=== PATIENT | female | born 1975 | race Caucasian/White ===

== ENCOUNTER 2016-10-17 07:24 | Outpatient (CLI) | payer MEDICAID ==
[~2016-10-17] VITALS: Ht 147.3 cm; Wt 61.7 kg
[~2016-10-17 07:24] MED LIST: PREN1TAB49 PO
[2016-10-17 07:47] VITALS: BP 110/56; PULSE 91; Ht 147.3 cm; Wt 61.7 kg
[2016-10-17] MEDS ORDERED: LACTATED RINGER'S 1,000 ML IV SCH (08:30)
--- NOTE | 2016-10-17 08:58 | RADRPT ---
PROCEDURE: US Abdomen. CLINICAL INDICATION: abdominal pain TECHNIQUE: Multiple real-time images were acquired of the patient's right upper quadrant abdomen a nd retroperitoneum utilizing a high resolution transducer. COMPARISON: 04/06/12 FINDINGS: The liver demonstrates normal echogenicity. The liver is normal in size and no focal solid lesions are seen. The liver measures 14.8 cm in length. The portal vein is patent with normal direction of f low. No intrahepatic biliary dilatation is seen. Multiple gallstones are identified within the gallbladder. There is no pericholecystic fluid or gal lbladder wall thickening. The common bile duct was not visualized. The pancreas was not seen due to overlying bowel gas. No free fluid is identified. The right kidney is normal in size, and demonstrate normal echogenicity and cortical thickness. The right kidney measures 9.0 cm in long dimension. There is mild right-sided hydronephrosis. There ar e no kidney stones. RPTAT: AA IMPRESSION: Cholelithiasis. Mild right-sided hydronephrosis. Pancreas and CBD not visualized. .Jose Armando Garcia MD, Date Time Electronically viewed and signed by .Jose Armando Garcia MD, on 10/17/2016 08:58 .S/
[2016-10-17 09:07] LABS: ADD UMIC NO; UR ASCORBIC ACID NEGATIVE (NEGATIVE); UR BILIRUBIN (Dip) NEGATIVE (NEGATIVE); UR BLOOD (Dip) NEGATIVE (NEGATIVE); UR CLARITY CLEAR (CLEAR); UR COLOR STRAW (YELLOW); UR GLUCOSE (Dip) NEGATIVE (NEGATIVE); UR KETONES (Dip) NEGATIVE (NEGATIVE); UR LEUKOCYTE ESTERASE (Dip) NEGATIVE Leu/ul (NEGATIVE); UR NITRITE (Dip) NEGATIVE (NEGATIVE); UR SPECIFIC GRAVITY (Dip) 1.011 (1.003-1.030); UR TOTAL PROTEIN (Dip) NEGATIVE (NEGATIVE); UR UROBILINOGEN (Dip) NEGATIVE (NEGATIVE)
[2016-10-17 09:43] LABS: ALBUMIN 3.4 g/dl (3.3-4.9); BILIRUBIN,INDIRECT 0.2 mg/dl (0-1.1); BILIRUBIN,TOTAL 0.2 mg/dl (0.2-1.3); CALCIUM 8.7 mg/dl (8.4-10.2); CREATININE 0.44 mg/dl (0.44-1.00); POTASSIUM 3.5 mmol/L (3.5-5.1); TOTAL PROTEIN 6.8 g/dl (6.1-8.1)
--- NOTE | 2016-10-17 10:38 | PN ---
Triage Information Date/Time 10/17/16 Weeks of Gestation 25 weeks and 2 day : 3 Para: 2 Diabetes: none Hypertention: none Objective Vital Signs Date Time Temp Pulse Resp B/P Pulse Ox O2 Delivery O2 Flow Rate FiO2 10/17/16 07:47 98.2 91 110/56 Heart Rate: 130's Contractions: None Results/Medications Result Diagram: 10/17/16 0835 Results 24 hrs Laboratory Tests Test 10/17/16 08:05 10/17/16 08:35 Urine Color STRAW Urine Clarity CLEAR Urine pH 7.0 Urine Specific [place] 1.011 Urine Ketones NEGATIVE Urine Nitrite NEGATIVE Urine Bilirubin NEGATIVE Urine Urobilinogen NEGATIVE Urine Leukocyte Esterase NEGATIVE Urine Hemoglobin NEGATIVE Urine Glucose NEGATIVE Urine Total Protein NEGATIVE Sodium Level 138 Potassium Level 3.5 Chloride Level 100 Carbon Dioxide Level 24 Anion Gap 18 H Blood Urea Nitrogen 9 Creatinine 0.44 Glucose Level 95 Calcium Level 8.7 Total Bilirubin 0.2 Direct Bilirubin 0.00 Indirect Bilirubin 0.2 Aspartate Amino Transf (AST/SGOT) 21 Alanine Aminotransferase (ALT/SGPT) 26 Alkaline Phosphatase 66 Total Protein 6.8 Albumin 3.4 Globulin 3.40 H Albumin/Globulin Ratio 1.00 Medications Current Medications Lactated Ringer's (Lr) 1,000 ml @ 125 mls/hr Q8H IV Last administered on t 08:38; Admin Dose 125 MLS/HR; Start 10/17/16 at 08:30 Assessment/Plan 25 weeks to 7 days complaining of right upper quadrant pain ultrasound diagnosis consistent with cholelithiasis patient discharged home on a low-fat diet and pain medication advised to follow with the clinic with the rest of her care LOUIS MARKS MD Oct 17, 2016 10:38
== END 2016-10-17 10:42 | disposition home or self-care (01) ==
LOC: OBT 07:24 → L-D 07:25 → OBT 10:42
PROVIDERS: ATTEND Obstetrics & Gynecology
DX: O99.612 Diseases of the digestive system complicating pregnancy, second trimester (principal); Z3A.25 25 weeks gestation of pregnancy
CPT/HCPCS: 36415; 76705; 80053; 81003; J7120; Z7500; G0463

== ENCOUNTER 2017-01-03 05:20 | Inpatient (IN) | payer MEDICAID ==
[~2017-01-03] VITALS: Ht 148.6 cm; Wt 66.2 kg
[2017-01-03 05:33] VITALS: Ht 148.6 cm; Wt 66.2 kg
[2017-01-03 05:34] VITALS: BP 123/88; PULSE 81; RESP 18
[2017-01-03] MEDS ORDERED: OXYTOCIN 30 UNITS/LR 500 ML IV PRN ×2 (06:00→13:00)
[2017-01-03] MEDS ORDERED: CARBOPROST 250 MCG INJ IM PRN ×2 (06:00→13:00)
[2017-01-03] MEDS ORDERED: METHYLERGONOVINE 0.2 MG INJ IM PRN ×2 (06:00→13:00)
[2017-01-03] MEDS ORDERED: AMPICILLIN 2 GM/NS (PMX) 100 ML IV SCH (06:00)
[2017-01-03] MEDS ORDERED: MISOPROSTOL 200 MCG TAB PR PRN ×2 (06:00→13:00)
[2017-01-03] MEDS ORDERED: OXYTOCIN 30 UNITS/LR 500 ML IV SCH (06:00)
[2017-01-03] MEDS ORDERED: CEFAZOLIN 2 GM/50 ML (PMX) 50 ML IV SCH (06:00)
[2017-01-03] MEDS: LACTATED RINGER'S 1,000 ML IV SCH ×2 (06:18→09:01)
[2017-01-03 06:55] LABS: ABNORMAL IP MESSAGE 1; BASOPHILS % 0.2 % (0.0-2.0); EOSINOPHILS # 0.1 10^3/ul (0.0-0.5); EOSINOPHILS % 0.9 % (0.0-7.0); HEMATOCRIT 40.6 % (37.0-47.0); HEMOGLOBIN 13.6 g/dl (12.0-16.0); LYMPHOCYTES # 1.4 10^3/ul (0.8-2.9); LYMPHOCYTES % 17.4 % (15.0-51.0); MEAN CORPUSCULAR HEMOGLOBIN 32.3 pg (29.0-33.0); MEAN CORPUSCULAR HGB CONC 33.5 g/dl (32.0-37.0); MEAN CORPUSCULAR VOLUME 96.4 fl (82.0-101.0); MEAN PLATELET VOLUME 14.2 fl (7.4-10.4); MONOCYTE # 0.4 10^3/ul (0.3-0.9); MONOCYTES % 5.3 % (0.0-11.0); NEUTROPHIL # 6.1 10^3/ul (1.6-7.5); NEUTROPHILS % 75.7 % (39.0-77.0); PLATELET COUNT 106 10^3/UL (140-415); RED BLOOD COUNT 4.21 10^6/ul (4.20-5.40); RED CELL DISTRIBUTION WIDTH 13.3 % (11.5-14.5); WHITE BLOOD COUNT 8.1 10^3/ul (4.8-10.8)
[2017-01-03 06:56] LABS: POSITIVE DIFF @See below
[2017-01-03 07:24] LABS: INR 0.89; PT RATIO 0.9
--- NOTE | 2017-01-03 07:33 | TRIAGE ---
OB Triage Datetime Report Generated by CPN: 01/03/2017 07:33 Datetime: 01/03/2017 07:07 Assessment Type: Admission Assessment Vaginal Bleeding: None Maternal Assessment Level of Consciousness: Fully Conscious DTR's/Clonus: DTRs 2+; No Clonus Headache: Denies Blurred Vision: No Respiratory Effort: Unlabored; Regular Rhythm; Equal Expansion Breath Sounds, Left: Clear and Equal Breath Sounds, Right: Clear and Equal Nausea/Vomiting: Denies RUQ Epigastric Pain: Denies Lower Extremities Edema: None Degree: None Upper Extremities Edema: None Degree: None Facial Edema: None Fall Risk Assessment History of Falling: (0) No Secondary Diagnosis: (0) No Ambulatory Aid: (0) Bedrest/Nurse Assist IV Therapy: (0) No Gait: (0) Normal/Bedrest/Immobile Mental Status: (0) Oriented to Own Ability Fall Score: 0 Fall Risk Score Definition: No Risk: No action required Membrane Status: Ruptured Membranes Ruptured Date/Time: 01/03/2017 04:00 Membranes Rupture Method: Spontaneous Amniotic Fluid Color: Clear Amniotic Fluid Amount: Moderate Amniotic Fluid Odor: None Nitrazine: Positive Datetime: 01/03/2017 07:00 Labor Evaluation Frequency: 3-5.5 Monitor Mode: External Duration (sec)2399: 50-110 Quality: Mild Pattern: Normal: <= 5 Contractions in 10 Minutes Resting Tone [place]: Relaxed Heart Rate FHR Baseline Rate: 140 Monitor Mode: External US Variability: Moderate 6-25 bpm Accelerations: 15X15 Decelerations: Variable Category: Category II Datetime: 01/03/2017 06:10 Stage of : Labor Datetime: 01/03/2017 06:00 Labor Evaluation Frequency: 4-6.5 Monitor Mode: External Duration (sec)2399: 50-80 Quality: Mild Pattern: Normal: <= 5 Contractions in 10 Minutes Resting Tone [place]: Relaxed Heart Rate FHR Baseline Rate: 135 Monitor Mode: External US Variability: Moderate 6-25 bpm Accelerations: 15X15 Decelerations: None Category: Category I Datetime: 01/03/2017 05:41 Stage of : OB Triage Datetime: 01/03/2017 05:35 Vaginal Exam Dilatation (cms): 0.0 Effacement (%): 60 Station: -3 Exam By: EUN Barker Membrane Status: Ruptured Membranes Rupture Method: Spontaneous Amniotic Fluid Color: Clear Amniotic Fluid Amount: Moderate Amniotic Fluid Odor: None Vaginal Bleeding: None Nitrazine: Positive Cervix, Consistency: Soft Cervix, Position: Posterior Datetime: 01/03/2017 05:29 Time of Arrival: 01/03/2017 05:12 EGA: 36.2 Arrived By: Wheelchair Arrived From: Home Chief Complaint: SROM @0400 Movement: Present Contractions: Irregular Time Contractions Began: 01/03/2017 04:00 Contractions: Unsure Rupture of Membranes: Ruptured Vaginal Bleeding: None Vaginal Discharge: Present Abdominal Trauma: Not Applicable Patient Complaints: Contractions; Cramping; Back Pain Time Provider Notified: 01/03/2017 05:41 Provider Notified: Initial Plan: EFM, Nitrazine Datetime: 01/03/2017 05:28 Stage of : OB Triage Assessment Type: Triage Maternal Assessment Level of Consciousness: Fully Conscious DTR's/Clonus: DTRs 2+; No Clonus Headache: Denies Blurred Vision: No Respiratory Effort: Unlabored; Regular Rhythm; Equal Expansion Breath Sounds, Left: Clear and Equal Breath Sounds, Right: Clear and Equal Nausea/Vomiting: Denies RUQ Epigastric Pain: Denies Lower Extremities Edema: None Degree: None Upper Extremities Edema: None Degree: None Facial Edema: None Temperature Route: Oral Fall Risk Assessment History of Falling: (0) No Secondary Diagnosis: (0) No Ambulatory Aid: (0) Bedrest/Nurse Assist IV Therapy: (0) No Gait: (0) Normal/Bedrest/Immobile Mental Status: (0) Oriented to Own Ability Fall Score: 0 Fall Risk Score Definition: No Risk: No action required Pain Assessment Pain Scale: 2 Pain Presence: Intermittent Pain Type: Cramping Pain Location: Abdomen; Back Pain Relief Measures: Comfort Measures Datetime: 10/17/2016 10:27 Stage of : OB Triage Datetime: 10/17/2016 10:16 Labor Evaluation Frequency: 0 Monitor Mode: External Resting Tone [place]: Relaxed Heart Rate FHR Baseline Rate: 135 Monitor Mode: External US Variability: Moderate 6-25 bpm Accelerations: 15X15 Decelerations: None Category: Category I Pain Assessment Pain Scale: 3 Pain Presence: Constant Pain Type: Ache Pain Location: Abdomen Pain Goal: 3 Pain Relief Measures: Comfort Measures Datetime: 10/17/2016 09:09 Labor Evaluation Frequency: X1 Monitor Mode: External Duration (sec)2399: 30 Resting Tone [place]: Relaxed Heart Rate FHR Baseline Rate: 145 Monitor Mode: External US Variability: Moderate 6-25 bpm Category: Category I Pain Assessment Pain Scale: 5 Pain Presence: Constant Pain Type: Ache Pain Location: Abdomen Pain Goal: 3 Pain Relief Measures: Comfort Measures Datetime: 10/17/2016 08:18 Stage of : OB Triage Datetime: 10/17/2016 07:44 Stage of : OB Triage Assessment Type: Triage Maternal Assessment Level of Consciousness: Fully Conscious DTR's/Clonus: DTRs 2+; No Clonus Headache: Denies Blurred Vision: No Respiratory Effort: Unlabored; Regular Rhythm; Equal Expansion Breath Sounds, Left: Clear and Equal Breath Sounds, Right: Clear and Equal Nausea/Vomiting: Denies RUQ Epigastric Pain: Denies Facial Edema: None Temperature Route: Axillary Fall Risk Assessment History of Falling: (0) No Secondary Diagnosis: (0) No Ambulatory Aid: (0) Bedrest/Nurse Assist IV Therapy: (0) No Gait: (0) Normal/Bedrest/Immobile Mental Status: (0) Oriented to Own Ability Fall Score: 0 Fall Risk Score Definition: No Risk: No action required Labor Evaluation Frequency: 0 Monitor Mode: External Resting Tone [place]: Relaxed Heart Rate FHR Baseline Rate: 150 Monitor Mode: External US Variability: Moderate 6-25 bpm Accelerations: 10X10 Decelerations: None Category: Category I Pain Assessment Pain Scale: 6 Pain Presence: Constant Pain Type: Ache Pain Location: Abdomen Pain Goal: 3 Pain Relief Measures: Comfort Measures Datetime: 10/17/2016 07:43 EGA: 25.1 Membranes Ruptured Date/Time: 01/03/2017 04:00 Datetime: 10/17/2016 07:42 Time of Arrival: 10/17/2016 07:25 Arrived By: Ambulatory Arrived From: Home Chief Complaint: C/O CONSTANT UPPER ABDOMINAL PAIN, DENIES BLEEDING OR LEAKING OF FLUID Movement: Present Contractions: Denies/Absent Rupture of Membranes: Denies Vaginal Bleeding: None Vaginal Discharge: Denies Recent Sexual Intercouse: Denies Abdominal Trauma: Not Applicable Patient Complaints: Other Time Provider Notified: 10/17/2016 08:18 Provider Notified: SELINA Initial Plan: MONITOR, U/A, CMP, U/S OF GALLBLADDER, IV HYDRATION
--- NOTE | 2017-01-03 08:23 | PN ---
Triage Information Date/Time Jan 03, 2017 at 05:41 Reason for visit: SROM Weeks of Gestation 36 weeks and 2 days /Para Diabetes: none Hypertention: none Objective Vital Signs Date Time Temp Pulse Resp B/P Pulse Ox O2 Delivery O2 Flow Rate FiO2 01/03/17 05:34 97.9 81 18 123/88 Room Air Heart Rate: 130's Heart Rate Comments Category I Contractions: 6-10 Minutes Apart Results/Medications Result Diagram: 01/03/17604 Results 24 hrs Laboratory Tests Test 01/03/17 06:05 White Blood Count 8.1 Red Blood Count 4.21 Hemoglobin 13.6 Hematocrit 40.6 Mean Corpuscular Volume 96.4 Mean Corpuscular Hemoglobin 32.3 Mean Corpuscular Hemoglobin Concent 33.5 Red Cell Distribution Width 13.3 Platelet Count 106 L Mean Platelet Volume 14.2 H Neutrophils % 75.7 Lymphocytes % 17.4 Monocytes % 5.3 Eosinophils % 0.9 Basophils % 0.2 Nucleated Red Blood Cells % 0.0 Neutrophils # 6.1 Lymphocytes # 1.4 Monocytes # 0.4 Eosinophils # 0.1 Basophils # 0.0 Nucleated Red Blood Cells # 0.0 Prothrombin Time 12.0 L Prothrombin Time Ratio 0.9 INR International Normalized Ratio 0.89 Activated Partial Thromboplast Time 29.0 Medications Current Medications Lactated Ringer's 1,000 ml @ 125 mls/hr Q8H IV Last administered on 06:18; Admin Dose 125 MLS/HR; Start 01/03/17 at 05:47 Ampicillin 100 ml @ 100 mls/hr ONCE IV Last administered on 01/03/17 07:02; Admin Dose 100 MLS/HR; Start 01/03/17 at 06:00 Cefazolin Sodium/ Dextrose 50 ml @ 100 mls/hr ONCE IV ; Start 01/03/17 at 06: 00 Oxytocin/Lactated Ringer's 500 ml @ 125 mls/hr ONCE IV ; Start 01/03/17 at 06: 00 Oxytocin/Lactated Ringer's 500 ml @ 0 mls/hr ONCE PRN IV For Hemorrhage Management; Start 01/03/17 at 06:00 Methylergonovine Maleate (Methergine) 0.2 mg ONCE PRN IM VAGINAL BLEEDING; Start 01/03/17 at 06:00 Carboprost Tromethamine (Hemabate) 250 mcg ONCE PRN IM VAGINAL BLEEDING; Start 01/03/17 at 06:00 Misoprostol (Cytotec) 1,000 mcg ONCE PRN [place] VAGINAL BLEEDING; Start 01/03/17 at 06:00 Disposition: Admit Assessment/Plan Previous c/s x2 SROM Labor contractions Plan: IV ampicillin Repeat c/s MIGEL LOBO MD Jan 03, 2017 08:23
[2017-01-03] MEDS ORDERED: morphine SULFATE/PF (10 MG/10 ML) INJ ONE (09:15)
[2017-01-03] MEDS ORDERED: FENTAnyl 50 MCG/ML VIAL ONE (09:15)
[2017-01-03] MEDS ORDERED: ONDANSETRON 4 MG INJ ONE (09:27)
[2017-01-03] MEDS ORDERED: PHENYLephrine (100 MCG/ML) 5ML SYG ONE (09:27)
[2017-01-03] MEDS ORDERED: DEXAMETHASONE 4 MG/ML 1 ML INJ ONE (09:27)
--- NOTE | 2017-01-03 09:32 | HP ---
Date/Time of Note Date/Time of Note DATE: 01/03/17 TIME: 09:15 OB - History Hx of Present Free Text/Dictation 41 years old female admitted to [facility] at 36 weeks and 2 days with EDC January 29, 2017 history of previous , premature rupture of membrane in labor Chief Complaint: 36 weeks 2 days pregnancy2 previous section which was rupture of m Estimated Due Date: Jan 29, 2017 : 3 Para: 2 Care: Limited Care Ultrasounds: Normal mid trimester US Obstetrical Complications: Growth Restriction Medical Complications: None Past Family/Social History * Past Medical, Surgical, Family and Obstetric Histories reviewed from chart. Rubella: immune RPR/VDRL: Negative GBS Status: Negative HBsAG: Unknown OB Admission Exam Vital Signs Vital Signs Vital Signs Date Time Temp Pulse Resp B/P Pulse Ox O2 Delivery O2 Flow Rate FiO2 01/03/17 05:34 97.9 81 18 123/88 Room Air Physical Exam HEENT: WNL Heart: Rhythm Normal Lungs: Clear, Equal Abdomen: WNL Extremities: Normal Reflexes: Normal Cervical Dilatation: 2cm Effacement: 50% Station: -2 Membranes: Ruptured Amniotic Fluid: Clear Heart Rate: 130's Accelerations: Accelerations Present Decelerations: No Decelerations Varibility: Moderate Contractions on Admission: >10 Minutes Apart Intensity: Mild Last 72 hours Lab Results CBC & BMP 01/03/17 06:05 OB Assessment/Plan Reason for admission: other (Previous premature rupture of membeane in labor ) Other plan: 41 years old female history of 2 previous admitted at 36 weeks and 2 days with premature rupture of membrane as of the morning in labor, being Prepared for repeat for the third time, complication of the surgery including but not limited to bowel and bladder injury, infection wound hematoma , hemorrhage, has been explained to her and she is willing to proceed with the repeat . LOUIS MARKS MD Jan 03, 2017 09:26
[2017-01-03] MEDS ORDERED: HYDROmorphONE 1 MG/ML SYG IV PRN ×2 (10:00)
[2017-01-03] MEDS ORDERED: TRIMETHOBENZAMIDE 100 MG/ML VIAL IM PRN (10:00)
[2017-01-03] MEDS ORDERED: KETOROLAC 30 MG INJ IV PRN (10:00)
[2017-01-03] MEDS ORDERED: ONDANSETRON 4 MG INJ IV PRN (10:00)
[2017-01-03] MEDS ORDERED: DIPHENHYDRAMINE 50 MG INJ IV PRN (10:00)
[2017-01-03] MEDS ORDERED: ZOLPIDEM 5 MG TAB PO PRN (10:00)
[2017-01-03] MEDS ORDERED: NALBUPHINE HCL (10 MG/1 ML) INJ IV PRN (10:00)
[2017-01-03] MEDS ORDERED: NALOXONE (0.4 MG/ML) INJ IV PRN (10:00)
--- NOTE | 2017-01-03 10:33 | OPR ---
Operative Report Planned Procedure Free Text/Dictation 41 years old female history of 2 previous admitted at 38 weeks 2 days with premature rupture of membrane in labor Procedure date Jan 03, 2017 Procedure(s) Repeat Performed by see signature line Assisting provider: MEREDITH YUN MD Anesthesiologist: LEX MCMULLEN DO Pre-procedure diagnosis Previous premature rupture of membrane in labor Anesthesia Type: spinal Procedure Description Under satisfactory spinal [] anesthesia, the patient was prepped and draped and placed in a supine position, tilted to the left. Pfannenstiel incision was made , carried through the subcutaneous tissue. Bleeders brought under control with electrocautery. Fascia incised to the length of the incision. Rectus muscles from the fascia, divided midline. Peritoneum exposed, entered through a transverse incision. Exploration of abdomen revealed gravid uterus. Normal- appearing tubes and ovaries bladder flap was developed. Transverse incision was made in the lower segment of the uterus. Amniotic sac ruptured. [Clear] amniotic fluid noted light baby girl was delivered from unengaged vertex. [] Nasal oropharyngeal suction was performed. The baby handed to the team for immediate attention patient received 20 units of. Pitocin placenta delivered manually intact. Uterine cavity was cleaned with wet sponge and drainage established. Uterus closed in 2 layers using [Monocryl #1] in continuous fashion. Peritoneal cavity irrigated with warm saline. Sponge, needle and instrument count reported to be correct. Abdominal peritoneum closed with 0 chromic catgut [] continuously. Rectus muscle approximated with [0 chromic catgut]. Fascia closed with #1 PDS],subcutaneous tissue approximated with 0 chromic catgut skin closed with N sorb estimated blood loss [600 cc. Urine bag contained 200 cc of clear urine patient tolerated procedure well transferred to recovery room in good condition. Post-Procedure Findings: Live Baby girl coronary 9 9 Estimated blood loss: other (600 cc) Specimen(s): no Grafts/Implants: no Complication(s): no Pt Condition post procedure: critical Physician Certification I, the undersigned physician, hereby certify that I have discussed the procedure described in this consent form with this patient (or the patient's legal unit support representative), including: * The risk and benefits of the procedure; * Any adverse reactions that may reasonably be expected to occur; * Any alternative efficacious methods of treatment which may be medically viable ; * The potential problems that may occur during recuperation; * Potential for blood transfusion and associated risks/benefits; and * Any research or economic interest I may have regarding this treatment. I further certify that the patient/legally responsible person was encouraged to ask question and that all questions were answered. LOUIS MARKS MD Jan 03, 2017 10:33
[2017-01-03] MEDS ORDERED: HYDROCODONE/APAP (5/325) TAB PO PRN ×2 (13:00)
[2017-01-03] MEDS ORDERED: CEFAZOLIN 1 GM/50 ML (PMX) 50 ML IVPB SCH (13:00)
[2017-01-03] MEDS ORDERED: LANOLIN 7 GM TUBE TOP PRN (13:00)
[2017-01-03] MEDS ORDERED: OXYCODONE/ACETAMINOPHEN (5/325) TAB PO PRN ×2 (13:00)
[2017-01-03 13:10] VITALS: BP 120/59; PULSE 56; RESP 18
[2017-01-03 16:00] VITALS: BP 106/63; PULSE 61; RESP 18
[2017-01-03] MEDS: OXYTOCIN 30 UNITS/LR 500 ML IV SCH ×3 (16:03→22:07)
[2017-01-03 20:00] VITALS: BP 101/59; PULSE 71; RESP 20
[2017-01-04] VITALS: BP 106/60; PULSE 75; RESP 18; RESP 20
[2017-01-04] MEDS: OXYTOCIN 30 UNITS/LR 500 ML IV SCH ×4 (02:00→20:44)
[2017-01-04 04:00] VITALS: BP 99/50; PULSE 64; RESP 18
[2017-01-04 09:59] LABS: ABNORMAL IP MESSAGE 1; BASOPHILS % 0.2 % (0.0-2.0); EOSINOPHILS % 0.4 % (0.0-7.0); HEMATOCRIT 31.9 % (37.0-47.0); HEMOGLOBIN 10.8 g/dl (12.0-16.0); LYMPHOCYTES # 1.3 10^3/ul (0.8-2.9); LYMPHOCYTES % 14.6 % (15.0-51.0); MEAN CORPUSCULAR HEMOGLOBIN 32.6 pg (29.0-33.0); MEAN CORPUSCULAR HGB CONC 33.9 g/dl (32.0-37.0); MEAN CORPUSCULAR VOLUME 96.4 fl (82.0-101.0); MEAN PLATELET VOLUME 13.7 fl (7.4-10.4); MONOCYTE # 0.5 10^3/ul (0.3-0.9); MONOCYTES % 5.1 % (0.0-11.0); NEUTROPHIL # 7.2 10^3/ul (1.6-7.5); NEUTROPHILS % 79.3 % (39.0-77.0); PLATELET COUNT 101 10^3/UL (140-415); RED BLOOD COUNT 3.31 10^6/ul (4.20-5.40); RED CELL DISTRIBUTION WIDTH 13.3 % (11.5-14.5); WHITE BLOOD COUNT 9.1 10^3/ul (4.8-10.8)
[2017-01-04 10:04] LABS: POSITIVE DIFF @See below
[2017-01-04 12:00] VITALS: BP 100/61; PULSE 70; RESP 18
[2017-01-04] MEDS: IBUPROFEN 600 MG TAB PO SCH ×2 (12:04→17:44)
--- NOTE | 2017-01-04 12:06 | QN ---
Documentation Comment Post post day 1 Afebrile Vital signs are stable Abdomen soft Bowel sounds present Lochia moderate Extremity normal Ambulation encouraged LOUIS MARKS MD Jan 04, 2017 12:06
[2017-01-04 20:00] VITALS: BP 99/56; PULSE 73; RESP 20
[2017-01-04] MEDS: SENNA/DOCUSATE NA (8.6MG/50MG) TAB PO SCH (21:26)
[2017-01-05] MEDS: IBUPROFEN 600 MG TAB PO SCH ×4 (00:22→18:04)
[2017-01-05] MEDS: OXYTOCIN 30 UNITS/LR 500 ML IV SCH ×5 (00:22→21:12)
[2017-01-05 04:30] VITALS: BP 95/56; PULSE 74; RESP 18
[2017-01-05 08:30] VITALS: BP 98/52; PULSE 68; RESP 18
[2017-01-05] MEDS: SENNA/DOCUSATE NA (8.6MG/50MG) TAB PO SCH ×2 (09:35→21:00)
[2017-01-05] MEDS ORDERED: NA PHOSPHATE/BIPHOS 133 ML ENEMA PR ONE (10:30)
--- NOTE | 2017-01-05 10:33 | QN ---
Documentation Comment POD#1 is stable afebrile +Flatus +Voids No VB Gen NAD Abd soft NT ND Incision intact Genitalia No blood at perinium --->discharge plan tomorrow --->ambulation MARIAN GONZALEZ M.D. Jan 05, 2017 10:33
[2017-01-05 16:00] VITALS: BP 98/64; PULSE 73; RESP 18
[2017-01-05 20:00] VITALS: BP 98/67; PULSE 74; RESP 18
[2017-01-06] MEDS: IBUPROFEN 600 MG TAB PO SCH ×4 (00:24→17:19)
[2017-01-06] MEDS: OXYTOCIN 30 UNITS/LR 500 ML IV SCH ×2 (00:44→04:44)
[2017-01-06] MEDS: SENNA/DOCUSATE NA (8.6MG/50MG) TAB PO SCH ×2 (08:56→20:43)
[2017-01-06] MEDS ORDERED: DIPHTH/TET/ACEL PERTUSS (ADULT) 0.5 ML VIAL IM* ONE (09:00)
--- NOTE | 2017-01-06 13:01 | QN ---
Documentation Comment AFEBRILE , VSS ABD. SOFT,BS PRESENT,HAD SMALL BOWL MOVEMENT ,AMBULATION ENCOURAGED INCISION DRY HEALING WELL LOUIS MARKS MD Jan 06, 2017 13:01
[2017-01-06 15:44] VITALS: BP 109/67; PULSE 65; RESP 18
[2017-01-06 19:35] VITALS: BP 100/62; PULSE 65; RESP 18
[2017-01-07] MEDS: IBUPROFEN 600 MG TAB PO SCH ×4 (00:02→17:24)
[2017-01-07 03:40] VITALS: BP 117/73; PULSE 76; RESP 18
[2017-01-07 08:34] VITALS: BP 108/64; PULSE 70; RESP 20
[2017-01-07] MEDS: SENNA/DOCUSATE NA (8.6MG/50MG) TAB PO SCH (08:42)
--- NOTE | 2017-01-07 10:50 | PD.PPDC ---
FLAT CUTTER Discharge Instruction Condition Patient Condition: Good Diet Diet: Resume Regular Diet Activity/Restrictions Activity: Normal Activity May Shower Restrictions: No Exercising No Lifting No Driving No Sexual Activity Nothing in the Vagina No [place] No Tampons, douche Wound/Drain Care Instructions Wound/Drain Care Instructions: Wash with soap and water Keep clean and dry Follow-up Follow-up with Physician: 1, Week/Weeks Provider Information: Post day 4 Post instructions given recommended to be seen at the clinic in 1 week for postoperative checkup Return to clinic for RECEIPT AND REPORT CLERK Instructions: Fever greater than 101 Chills Worsening abdominal pain Excessive Vaginal Bleeding More than 2 pads per hour Unable to tolerate diet OB Instructions: Breast Tenderness Depression Blurried Vision Headache Surgical Instructions: Incisional Drainage Incisional Redness LOUIS MARKS MD Jan 07, 2017 10:50
--- NOTE | 2017-01-07 10:54 | DS ---
Date/Time of Note Date/Time of Note DATE: 01/07/17 TIME: 10:51 Discharge Summary Admission/Discharge Info Admit Date/Time Jan 03, 2017 at 05:41 Discharge Date/Time January 07, 2017 at 1230 Discharge Diagnosis Day 4 post repeat . Patient Condition: Good Procedures Repeat Hx of Present Illness Term history of previous Hospital Course Satisfactory uneventful Home Meds Reported Medications Vits W-Ca,Fe,Fa(<1MG) () 1 Tab Tablet, 1 TAB PO 11/16/11 Follow-up Plan Post instructions given recommended to be seen at the clinic in 1 week Primary Care Provider Care Physician No Primary Time spent on discharge: < 30 minutes LOUIS MARKS MD Jan 07, 2017 10:54
[2017-01-07 16:00] VITALS: BP 110/62; PULSE 76; RESP 20
== END 2017-01-07 18:28 | disposition home or self-care (01) | DRG 766 ==
LOC: OBT 05:20 → L-D 05:20 → OBT 05:41 → L-D 09:10 → PP1 13:03
PROVIDERS: ADMIT Obstetrics & Gynecology; ATTEND Obstetrics & Gynecology
PROC: 10D00Z1 Extraction of Products of Conception, Low, Open Approach (ICD-10-PCS; principal; 2017-01-03 09:00)
DX: O34.211 Maternal care for low transverse scar from previous cesarean delivery (principal); N85.8 Other specified noninflammatory disorders of uterus; Z3A.38 38 weeks gestation of pregnancy; Z37.0 Single live birth
CPT/HCPCS: 36415; 85025; 85610; 85730; 86592; 86850; 86900; 86901; 90715; 99464; G0463; J0290; J0690; J1100; J1885; J2274; J2370; J2405; J2590; J3010; J7120

== ENCOUNTER 2017-06-06 01:33 | Emergency (ER) | END 2017-06-06 03:30 | disposition home or self-care (01) ==